=== PATIENT | male | born 2000 | race African-American/Black ===

== ENCOUNTER 2022-09-28 21:06 | Emergency (ER) | payer OTHER ==
[~2022-09-28] VITALS: Ht 170.2 cm; Wt 76.4 kg
[2022-09-28 21:07] VITALS: BP 120/73
[2022-09-28] MEDS ORDERED: ACETAMINOPHEN 325 MG TAB PO ONE (23:15)
== END 2022-09-29 00:38 | disposition home or self-care (01) ==
LOC: M ED 21:06
DX: B34.8 Other viral infections of unspecified site (principal); D75.A Glucose-6-phosphate dehydrogenase (G6PD) deficiency without anemia; Z88.8 Allergy status to other drugs, medicaments and biological substances